=== PATIENT | male | born 1970 | race Caucasian/White ===

== ENCOUNTER 2017-08-03 08:06 | Emergency (ER) | payer BC ==
[~2017-08-03] VITALS: Ht 172.7 cm; Wt 95.3 kg
[2017-08-03] MEDS ORDERED: CIPR500T94 PO (08:52)
[2017-08-03] MEDS ORDERED: METR500T PO (08:52)
--- NOTE | 2017-08-03 08:57 | PHYS DOC ---
General Chief Complaint: ABDOMINAL PAIN Stated Complaint: ABDOMINAL PAIN Time Seen by MD: 08:50 Source: patient Exam Limitations: no limitations Problems: History of Present Illness Initial Comments Pt is 47/M to ED c/o LLQ abd pain. Pt states he has h/o diverticulitis approx 5 yrs ago, saw GI/had scope recommended to recheck colonoscopy 10 yrs. Pt hasn't had further issues until past few days LLQ pain identical to prior (sharp/achy 4/10 comes/goes) with some loose stools no blood no n/v. No travel/bad food exposure no fever/chills , appetite intact. Pt has been off BP meds 5 days, restarted just prior to ED (190/128 on arrival) no sx (no cp/sotelo/vision change/sob/dizzy). Pt also says he has white coat HTN. Knows not to take ibu, asks if tylenol is OK (refuses opiates due to constipation). No other sx Timing/Duration: 24 hours Severity: moderate Modifying Factors: improves with other Associated Symptoms: other Allergies: Coded Allergies: No Known Drug Allergies (Unverified , 08/03/17) Past Medical History Medical History: hypertension (diverticulitis) Surgical History: noncontributory Social History Smoker: non-smoker Alcohol: occasionally Drugs: none Review of Systems Constitutional: denies chills, denies diaphoresis, denies fever Respiratory: denies cough, denies shortness of breath, denies wheezing Cardiovascular: denies chest pain, denies palpitations, denies syncope Gastrointestinal: see HPI Genitourinary: denies dysuria, denies frequency, denies hematuria Musculoskeletal: denies back pain, denies joint swelling, denies neck pain Psychiatric/Neurological: denies headache, denies numbness, denies paresthesia Physical Exam General Appearance: WD/WN, no apparent distress Eyes: bilateral eye normal inspection, bilateral eye PERRL, bilateral eye EOMI Neck: non-tender, supple Respiratory: normal breath sounds, no respiratory distress Cardiovascular: normal peripheral pulses, regular rate, rhythm Gastrointestinal: soft (ND, LLQ TTP no r/g/mass, neg mcburney/العلي, BS diminished, no skin changes) Back: no CVA tenderness, no vertebral tenderness Extremities: non-tender, normal inspection Neurologic/Psychiatric: spanish interpreter II-XII nml as tested, no motor/sensory deficits, alert, oriented x 3 Skin: normal color, warm/dry Orders, Labs, Meds Pt doesn't want any testing he is certain sx are diverticulitis. Recheck BP 171 /95 no treatment, remains asymptomatic. Discussed treatment plan, questions answered. Departure Time of Disposition: 08:57 Disposition: 01 HOME, SELF-CARE Diagnosis: diverticulitis, HTN uncontrolled Condition: GOOD Patient Instructions: Diverticulitis, [id number], Diverticulosis-Brief, Hypertension Additional Instructions: Continue BP meds without interruption. Although your values are high, it is reassuring that you have no accompanying symptoms related to your elevated BP. Please review the patient education materials. OTC tylenol as needed. Clear liquids today, advance to bland as tolerated tomorrow. Rx: cipro, flagyl No alcoholic beverage intake while taking flagyl. Follow up with your doctor tomorrow for BP check. Return to ED with new or changing symptoms. ELISA MORENO DO Aug 03, 2017 08:57
[2017-08-03] MEDS ORDERED: CIPROFLOXACIN HCL 500 MG TABLET PO ONE (09:15)
[2017-08-03] MEDS ORDERED: metroNIDAZOLE 500 MG TABLET PO ONE (09:15)
[2017-08-03] MEDS ORDERED: ONDANSETRON ODT 4 MG TAB.RAPDIS PO ONE (09:15)
[2017-08-03 10:00] VITALS: BP 171/95
== END 2017-08-03 10:00 | disposition home or self-care (01) ==
LOC: ER 08:06
DX: K57.92 Diverticulitis of intestine, part unspecified, without perforation or abscess without bleeding (principal); I10 Essential (primary) hypertension
CPT/HCPCS: 99284; Q0162